=== PATIENT | male | born 1955 | race Caucasian/White ===

== ENCOUNTER 2019-03-18 10:29 | Emergency (ER) | payer BC, MEDICARE, SELFPAY ==
[2019-03-18] VITALS (10 sets, daily range): BP systolic 123–170; BP diastolic 54–80; PULSE 80–88; RESP 13–18; TEMP 36.7; O2SAT 96–100
[2019-03-18 11:27] LABS: Basophils Absolute Auto 0.1 K/mm3 (0.0-0.1); Basophils Percent Auto 0.9 % (0.2-1.2); Eosinophils Absolute Auto 0.2 K/mm3 (0-0.3); Eosinophils Percent Auto 2.7 % (0-4.4); Hematocrit 28.7 % (42.0-52.0); Hemoglobin 8.5 g/dL (14.0-18.0); Immature Granulocyte Absolute 0.01 K/mm3 (0.00-0.031); Immature Granulocyte Percent A 0.2 % (0-0.5); Immature Platelet Fraction Pct 8.7 % (0.9-11.2); Lymphocytes Absolute Auto 0.67 K/mm3 (0.9-3.2); Mean Corpuscular HGB Conc 29.6 g/dl (32-36); Mean Corpuscular Hemoglobin 22.3 pg (26-34); Mean Corpuscular Volume 75.3 fl (80-100); Monocytes Absolute Auto 0.6 K/mm3 (0.1-0.6); Monocytes Percent Auto 10.9 % (2.6-8.5); Neutrophils Absolute Auto 4.1 K/mm3 (1.3-6.7); Neutrophils Percent Auto 73.3 % (45.5-73.1); Platelet Count Result 68 k/mm3 (150-375); Red Blood Count 3.81 M/mm3 (4.6-6.20); Red Cell Distribution Width 17.2 % (11.5-14.5); White Blood Count 5.6 K/mm3 (4.5-10.0)
[2019-03-18 11:45] LABS: Alanine Aminotransferase 30 U/L (4-50); Albumin Level 3.3 g/dL (3.5-5.1); Alkaline Phosphatase 232 U/L (38-126); Aspartate Amino Transferase 41 U/L (17-59); Bilirubin,Total 0.5 mg/dL (0.2-1.3); Blood Urea Nitrogen 34 mg/dL (9-20); Calcium 8.7 mg/dL (8.4-10.2); Carbon Dioxide 22 mmol/L (22-30); Chloride 100 mmol/L (98-107); Estimated CRCL calculation 68 ml/min; Estimated Glomerular Filt Rate > 60; Glucose 563 mg/dL (75-110); Magnesium 1.9 mg/dL (1.6-2.3); Potassium 4.7 mmol/L (3.4-5.0); Sodium 130 mmol/L (137-145)
[2019-03-18 11:46] LABS: Beta-Hydroxybutyrate/Acetoacetate 0.13 mmol/L (0.02-0.27)
--- NOTE | 2019-03-18 12:07 | ED.RECABL ---
HPI - Recheck/Abnormal Lab/Rx General Chief Complaint: Recheck/Abnormal Lab/Rx Stated Complaint: GLUCOSE >600 Time Seen by Provider: 03/18/19 10:47 Source: patient and family (spouse) Mode of arrival: ambulatory Limitations: no limitations History of Present Illness HPI narrative: Pt is a 63 y/o male who presents to the ED with c/o a high BS. Per spouse pt is a diabetic and normally takes 50 units of Lantus in the morning. Yesterday his BS was 530 and he was having a gamma knife treatment at [facility] to stop a benign meningioma that is close of his active nerve from growing. He was told to not take his insulin in the morning before the procedure. Pt was given his Lantus at the office and his BS was 502 after he left the office at 3PM. Pt's spouse called his PCP's office and made an appointment for this morning. Pt went to see Dr. Hughes and he was told to come to the ED because his BS was too high. Per spouse, his BS normally runs between 217-270. Pt was not given any steroids yesterday. He reports generalized weakness and a cough, but he denies N/V, SOB, CP, ABD pain, or a fever. Pt got 50 units of Lantus this morning at 0730. He has not had anything to eat or drink since last night. He reports polydipsia but he denies urinary frequency. Pt is a 1PPD smoker but he denies EtOH or drug abuse. He reports rt shoulder surgery and he had a trenton placed in his shoulder 3 weeks ago that he is recovering from. MD complaint: abnormal lab Context: other (high BS) Associated symptoms: other (weakness, polydipsia) Treatments prior to arrival: other (50 units of Lantus) Related Data Home Medications Medication Instructions Recorded Confirmed folic acid 1 mg tablet 1 mg PO DAILY 03/18/19 hydrocodone 10 mg-acetaminophen 1 tablet PO Q6H PRN 03/18/19 325 mg tablet insulin glargine 100 unit/mL (3 35 unit SUB-Q DAILY ml 03/18/19 mL) subcutaneous pen lancets #50 each 03/18/19 levothyroxine 50 mcg tablet 50 mcg PO DAILY 03/18/19 pen needle, diabetic 32 gauge x #10 each 03/18/19 quetiapine 400 mg tablet,extended PO 03/18/19 release 24 hr ropinirole 0.5 mg tablet 0.5 mg PO TID 03/18/19 thiamine HCl (vitamin B1) 100 mg 100 mg PO DAILY 03/18/19 tablet Allergies Allergy/AdvReac Type Severity Reaction Status Date / Time pseudoephedrine Allergy Intermediate speeds up Verified 03/18/19 09:54 metabolism triprolidine Allergy Intermediate speeds up Verified 03/18/19 09:54 metabolism diphenhydramine Allergy Mild Rash Verified 03/18/19 09:54 PSEUDOEPHEDRINE HCL Allergy Intermediate HEART RACES Uncoded 03/18/19 09:54 TRIPROLIDINE HCL Allergy Intermediate HEART RACES Uncoded 03/18/19 09:54 Review of Systems Review of Systems: All systems reviewed & are unremarkable except as noted in HPI and below Constitutional: Constitutional: Denies fever(s) and Reports weakness Cardiovascular: Cardiovascular: Denies chest pain Respiratory: Respiratory: Reports cough and Denies dyspnea Gastrointestinal: Gastrointestinal: Denies nausea and Denies vomiting Genitourinary: Genitourinary: Denies urinary frequency Musculoskeletal: Musculoskeletal: Reports other (rt shoulder pain) Endocrine: Endocrine: Reports polydipsia PMFSH Past Medical History Medical History (Updated 03/18/19 @ 14:18 by Kaylin Finnegan MD) Anemia (Acute) Anxiety (Acute) Ascites (Acute) Chronic back pain (Acute) Diabetes mellitus (Acute) Hepatitis C (Acute) Liver disease (Acute) Meningioma (Acute) Restless leg syndrome (Acute) Shoulder fracture, right (Acute) Surgical History Surgical History (Updated 03/18/19 @ 12:48 by Steve Griffiths) H/O shoulder surgery (Acute) Social History Social History Smoking status: Heavy tobacco smoker Second hand tobacco smoke exposure: No Alcohol intake: never Exam Narrative: Exam Narrative: GENERAL: Well-appearing, well-nourished, and in
--- NOTE | 2019-03-18 12:16 | ECG_ITS ---
Measurements Intervals [place] Rate: 86 P: 62 MI: 196 QRS: -35 QRSD: 106 T: 61 QT: 367 QTc: 440 Interpretive Statements SINUS RHYTHM LEFT AXIS DEVIATION INCOMPLETE RIGHT BUNDLE BRANCH BLOCK CANNOT RULE OUT SEPTAL INFARCT, AGE INDETERMINATE ABNORMAL ECG Electronically Signed On 03-18-2019 13:51:59 GEAR CUTTING MACHINE SET UP OPERATOR by Efe Colindres D.O.
[2019-03-18] MEDS: SODIUM CHLORIDE 0.9% IV 1,000 ML 999 ML IV CONT (12:38)
[2019-03-18] MEDS: INSULIN HUMAN REGULAR (*BKC) 100 UNITS/ML 10 UNITS SUB-Q (13:04)
[2019-03-18 13:35] LABS: Add Urine Microscopic? YES; Appearance Urine Clear (Clear); Bilirubin Urine Negative (Negative); Blood Urine Negative (Negative); Color Urine Yellow (Yellow); Glucose Urine UA 3+ mg/dL (Negative); Ketones Urine Negative (Negative); Leukocyte Esterase Ur Negative LEU/UL (Negative); Nitrate Urine Negative (Negative); Protein Urine Negative (Negative); RBC Urine 0-2 /hpf (0-2); Specific Grav Ur 1.025 (1.001-1.035); Urobilinogen Urine Negative mg/dL (<2.0); WBC Urine 0-3
[2019-03-18 13:38] LABS: Ammonia 17 umol/L (9-30)
[2019-03-18 13:43] LABS: Beta-Hydroxybutyrate/Acetoacetate 0.12 mmol/L (0.02-0.27)
[2019-03-18 13:52] LABS: Lipase 319 U/L (23-300)
[2019-03-18 13:57] LABS: Glucose Point of Care 447 (65-105)
== END 2019-03-18 15:20 | disposition home or self-care (01) ==
PROVIDERS: Emergency Provider General Practice; PCP Internal Medicine
DX: E11.65 Type 2 diabetes mellitus with hyperglycemia (principal); D69.6 Thrombocytopenia, unspecified; D64.9 Anemia, unspecified; D32.0 Benign neoplasm of cerebral meninges; Z79.4 Long term (current) use of insulin; F17.200 Nicotine dependence, unspecified, uncomplicated; Z86.19 Personal history of other infectious and parasitic diseases; K76.9 Liver disease, unspecified; G25.81 Restless legs syndrome; I45.10 Unspecified right bundle-branch block; I25.2 Old myocardial infarction
CPT/HCPCS: 36415; 51701; 80053; 81001; 82010; 82140; 82947; 82948; 82962; 83690; 83735; 84100; 85025; 93005; 96360; 99283; J1815; J7030